=== PATIENT | male | born 1925 | race Caucasian/White ===

== ENCOUNTER 2016-06-14 10:37 | Emergency (ER) | payer BC ==
[~2016-06-14] VITALS: Ht 176.5 cm; Wt 79.1 kg
[~2016-06-14 10:37] MED LIST: CHOL100010 PO; COEN200C4 PO; DUTACAP PO; ISOS30TA35 PO; METO25TA3 PO; MULT60CA PO; RIVA1TAB PO; TPRSR/50 PO
[2016-06-14 10:40] VITALS: TEMP 36.8; Ht 176.5 cm; Wt 79.1 kg
[2016-06-14] MEDS ORDERED: ASPI81TA28 PO (11:27)
[2016-06-14 11:48] VITALS: O2SAT 96
--- NOTE | 2016-06-14 11:49 | DIAGNOSTIC IMAGING REPORT ---
SINGLE VIEW CHEST CLINICAL HISTORY: Dyspnea. FINDINGS: An AP, portable, upright chest radiograph is compared to study dated 08/07/2015. The examination is degraded by portable technique and patient rotation. The heart is mildly enlarged and there is atherosclerotic calcification of the thoracic aorta. The pulmonary vasculature is noncongested. Chronic interstitial thickening is unchanged. No airspace consolidation, large pleural effusion, or pneumothorax is seen. There is mild bibasilar atelectasis. The skeletal structures are osteopenic. The bony thorax is grossly intact. IMPRESSION: Moderate cardiomegaly with no acute cardiopulmonary abnormality. Electronically signed by: Dany Keith M.D. 06/14/2016 11:48 AM Dictated Date/Time: 06/14/2016 11:46 AM
[2016-06-14 12:06] LABS: MEAN CELL VOLUME 90.7 fL (80-100); MEAN CORPUSCULAR HGB CONC 34.1 g/dl (32-36); MEAN PLATELET VOLUME 10.5 fL (7.4-10.4); PLATELET COUNT 186 K/uL (130-400); RED BLOOD COUNT 4.52 M/uL (4.7-6.1); WHITE BLOOD COUNT 6.14 K/uL (4.8-10.8)
[2016-06-14 12:16] LABS: BUN/CREATININE RATIO 20.9 (10-20); CALCIUM 9.2 mg/dl (8.5-10.1); CREATININE 1.1 mg/dl (0.60-1.40); POTASSIUM 4.5 mmol/L (3.5-5.1); PROTHROMBIN TIME (PATIENT) 11.1 SECONDS (9.0-12.0)
[2016-06-14 12:27] LABS: ALB/GLOB RATIO 0.8 (0.9-2); CKMB/CK RATIO 3.3 (0-3.0); THYROID STIMULATING HORMONE 0.799 uIu/ml (0.300-4.500)
[2016-06-14 12:36] VITALS: BP 133/99; O2SAT 93
[2016-06-14 12:59] VITALS: PULSE 82
--- NOTE | 2016-06-14 15:48 | EMERGENCY ROOM VISIT NOTE ---
History Report prepared by Eileen: Chrystal Novak Under the Supervision of: Dr. Dany Berg M.D. First contact with patient: 11:41 Chief Complaint: TACHYCARDIA Stated Complaint: HEART RACING Nursing Triage Summary: PT HAS HX OF SC WITH STENT PLACED IN 1979. HX OF AFIB. ABLATION COMPLETED 1.5 YEARS AGO WITH NO CARDIAC ISSUES SINCE. PT TODAY DEVELOPED RACING HEART RATE AND SOB, PRESENTS FOR CARDIAC EVAL. PT SINUS BRADYCARDIA UPON ARRIVAL, HR IN THE 50'S. DENIES CP, BUT DOES C/O SOB. SATS 97% ON ROOM AIR. History of Present Illness The patient is an 89 year old male who presents to the Emergency Room with complaints of intermittent episodes of palpitations over the past 6 hours. Currently, he denies experiencing any discomfort, however, his symptoms are exacerbated with attempts of exertion, and resolved after sitting down to rest. Patient normally rides his stationary exercise bike for 30 minutes each morning , however, as his palpitations became more severe with exercise this morning, he was only able to tolerate 5 minutes of riding before having to get off to rest. With these episodes of palpitations, patient denies experiencing chest pain, shortness of breath, nausea, or diaphoresis. He also denies recent fevers , chills, cough, abdominal pain, vomiting, diarrhea or urinary symptoms. The patient has a history of SC with stent placed in 1979. He also has a history of atrial fibrillation and had a cardiac ablation 1.5 years prior. He has since been on Xarelto, which he continues to take regularly. Patient states that he does not normally drink caffeine, however, he believes that he may have received caffeinated coffee at a restaurant last evening. Source of History: patient Onset: 529 this morning Position: chest Symptom Intensity: no current discomfort Quality: other (palpitations) Timing: intermittent Modifying Factors (Worsening): exertion Modifying Factors (Relieving): rest Associated Symptoms: No SOB, No abdominal pain, No chest pain, No chills, No cough, No diarrhea, No fevers, No nausea, No vomiting Review of Systems See HPI for pertinent positives & negatives. A total of 10 systems reviewed and were otherwise negative. Past Medical & Surgical Medical Problems: (1) Benign hypertension (2) Coronary atherosclerosis of [place] coronary vessel (3) DIVERTICULOSIS COLON (W/O MENT OF HEMORRHAGE) (4) History of cataract extraction (5) History of repair of inguinal hernia (6) HYPERLIPIDEMIA NEC/NOS (7) PERCUTANEOUS TRANSLUM CORON ANGIOPLASTY STATUS Surgical Problems: (1) Stented coronary artery Family History Stroke Social History Smoking Status: Former Smoker Alcohol Use: none Drug Use: none Marital Status: Housing Status: lives with family Occupation Status: retired Current/Historical Medications Scheduled Aspirin (Aspirin Ec), 81 MG PO Q2D Cholecalciferol (Vitamin D), 1,000 INTER.UNIT PO BID Coenzyme Q10 (Ubidecarenone) (Coq-10), 200 MG PO QAM Dutasteride-Tamsulosin Hcl ([place]), 1 CAP PO QPM Metoprolol Succ (Toprol Xl) (Toprol-Xl), 25 MG PO Q2D Metoprolol Succinate (Metoprolol Succinate ER), 50 MG PO QAM Multiple Vitamins W/ Minerals (Preservision Areds 2), 1 CAP PO BID Rivaroxaban (Xarelto), 10 MG PO QPM Allergies Coded Allergies: Clopidogrel (Verified Allergy, Mild, RASH, 06/14/16) Lisinopril (Verified Allergy, Unknown, JT PAIN, 06/14/16) Pantoprazole (Verified Allergy, Unknown, NAUSEA, 06/14/16) Prednisone (Unverified Allergy, Unknown, UPSET STOMACH, 06/14/16) Tetracycline (Verified Allergy, Unknown, IMMEDIATE SOB, 06/14/16) Ticlopidine (Verified Allergy, Unknown, 'rash with plavix' per pt, 06/14/16 ) Statins (Verified Adverse Reaction, Unknown, joint and muscle pain, ) Physical Exam Vital Signs Date Time Temp Pulse Resp B/P Pulse Ox O2 Delivery O2 Flow Rate FiO2 06/14/16 12:59 82 06/14/16 12:36 57 22 133/99 93 Room Air 06/14/16 11:48 96 Room Air 06/14/16 11:48 94 Room Air 06/14/16 11:20 98 Room Air 06/14/16 11:03 60 06/14/16 10:54 60 18 94 Room Air 06/14/16 10:40 36.8 71 18 140/79 98 Room Air Physical Exam GENERAL: Patient is in no acute distress. HEENT: No acute trauma, normocephalic atraumatic, mucous membranes moist, no nasal congestion, no scleral icterus. NECK: No stridor, no adenopathy, no meningismus, trachea is midline. LUNGS: Clear to auscultation bilaterally, no wheeze, no rhonchi, breath sounds equal. HEART: Mildly bradycardic. Regular rhythm. No murmurs. ABDOMEN: Soft, nontender, bowel sounds positive, no hernias, no peritonitis. EXTREMITIES: No cyanosis or edema, full range of motion of all the joints without pain or difficulty, no signs for acute trauma. NEUROLOGIC: Oriented x 3, no acute motor or sensory deficits, no focal weakness. SKIN: No rash, no jaundice, no diaphoresis. Medical Decision & Procedures ER Provider Diagnostic Interpretation: X-ray results as stated below per interpretation by me and the radiologist: SINGLE VIEW CHEST CLINICAL HISTORY: Dyspnea. FINDINGS: An AP, portable, upright chest radiograph is compared to study dated 08/07/2015. The examination is degraded by portable technique and patient rotation. The heart is mildly enlarged and there is atherosclerotic calcification of the thoracic aorta. The pulmonary vasculature is noncongested. Chronic interstitial thickening is unchanged. No airspace consolidation, large pleural effusion, or pneumothorax is seen. There is mild bibasilar atelectasis. The skeletal structures are osteopenic. The bony thorax is grossly intact. IMPRESSION: Moderate cardiomegaly with no acute cardiopulmonary abnormality. Electronically signed by: Dany Keith M.D. 06/14/2016 11:48 AM Dictated Date/Time: 06/14/2016 11:46 AM Laboratory Results 06/14/16 11:15 06/14/16 11:15 Test 06/14/16 11:15 06/14/16 11:29 Red Blood Count 4.52 M/uL (4.7-6.1) Mean Corpuscular Volume 90.7 fL (80-100) Mean Corpuscular Hemoglobin 31.0 pg (25-34) Mean Corpuscular Hemoglobin Concent 34.1 g/dl (32-36) RDW Standard Deviation 43.3 fL (36.4-46.3) RDW Coefficient of Variation 13.1 % (11.5-14.5) Mean Platelet Volume 10.5 fL (7.4-10.4) Prothrombin Time 11.1 SECONDS (9.0-12.0) Prothromb Time International Ratio 1.0 (0.9-1.1) Activated Partial Thromboplast Time 26.1 SECONDS (21.0-31.0) Partial Thromboplastin Ratio 1.0 Anion Gap 8.0 mmol/L (3-11) Est Creatinine Clear Calc Drug Dose 46.2 ml/min Estimated GFR () 68.6 Estimated GFR (Non- 59.2 BUN/Creatinine Ratio 20.9 (10-20) Calcium Level 9.2 mg/dl (8.5-10.1) Total Bilirubin 0.3 mg/dl (0.2-1) Aspartate Amino Transf (AST/SGOT) 15 U/L (15-37) Alanine Aminotransferase (ALT/SGPT) 17 U/L (12-78) Alkaline Phosphatase 58 U/L (45-117) Total Creatine Kinase 40 U/L (39-308) Creatine Kinase MB 1.3 ng/ml (0.5-3.6) Creatine Kinase MB Ratio 3.3 (0-3.0) Total Protein 7.7 gm/dl (6.4-8.2) Albumin 3.5 gm/dl (3.4-5.0) Globulin 4.2 gm/dl (2.5-4.0) Albumin/Globulin Ratio 0.8 (0.9-2) Thyroid Stimulating Hormone (TSH) 0.799 uIu/ml (0.300-4.500) Bedside Troponin I 0.000 ng/ml (0-0.045) Laboratory results reviewed by me. ECG Indication: palpitations Rate (beats per minute): 59 Rhythm: sinus bradycardia Findings: 1st degree AV block, no acute ischemic change, no ectopy ED Course 1142: The patient was evaluated in room B3. A complete history and physical exam was performed. 1240: I have reviewed the results of the patient's radiology reports and lab tests. He will be taken through an ambulatory trial. 1315: The patient has been taken through an ambulatory trial and did not have any increase in heart rate. He also states that he felt fine when walking around without exacerbation of symptoms. 1320: Patient was informed of the results of his workup. Discharge instructions were also discussed at this time. He verbalized his understanding and agreement with the treatment plana, and he is now ready for disposition. Medical Decision The patient is an 89 year old male who presents to the ED with complaints of intermittent episodes of palpitations with exertion over the past 6 hours. Differential diagnoses considered include SVT, atrial fibrillation/atrial flutter, electrolyte imbalance, anemia, cardiac ischemia, CHF and SC. There is no leukocytosis or worrisome anemia. No significant electrolyte abnormality, kidney failure, hepatitis. The patient appears to be in a euthyroid state. Chest x-ray does not show pneumonia or CHF. EKG shows a sinus bradycardia with a first-degree AV block, no dysrhythmia. Cardiac enzyme testing times one is not suggestive of acute cardiac injury. The patient has done well since he has been in the emergency room. He was walked about the department without any palpitations or without any tachycardia. He felt back to baseline. The cause for the palpitations is unclear. He has had A. fib in the past and certainly paroxysmal A. fib is a consideration. The patient was advised to follow with his doctors office. If he has worsening symptoms, if he has chest pain or shortness of breath, he will return. Impression Primary Impression: Palpitations Scribe Attestation The scribe's documentation has been prepared under my direction and personally reviewed by me in its entirety. I confirm that the note above accurately reflects all work, treatment, procedures, and medical decision making performed by me. Departure Information Dispostion Home / Self-Care Referrals Ross Velasquez M.D. (PCP) Forms HOME CARE DOCUMENTATION FORM, IMPORTANT VISIT INFORMATION Patient Instructions My [facility] Additional Instructions all meds as before return for the return of symptoms or any chest pain or shortness of breath lab testing today was ok EKG today was ok
== END 2016-06-14 13:26 | disposition home or self-care (01) ==
LOC: C.EDB 10:38
DX: R00.2 Palpitations (principal); I25.2 Old myocardial infarction; I48.91 Unspecified atrial fibrillation; I10 Essential (primary) hypertension; Z87.891 Personal history of nicotine dependence; Z98.61 Coronary angioplasty status; Z98.49 Cataract extraction status, unspecified eye; Z98.890 Other specified postprocedural states; Z82.3 Family history of stroke; Z79.01 Long term (current) use of anticoagulants; Z79.82 Long term (current) use of aspirin; Z79.899 Other long term (current) drug therapy

== ENCOUNTER → 2016-09-13 | Outpatient (CLI) | payer BC ==
[~2016-09-13] MED LIST changes: +ASPI81TA28 PO; -ISOS30TA35 PO
== END | disposition home or self-care (01) ==
LOC: C.MAMM 09:19
PROVIDERS: ATTEND Family Medicine
DX: M85.851 Other specified disorders of bone density and structure, right thigh (principal); M85.852 Other specified disorders of bone density and structure, left thigh